=== PATIENT | female | born 1995 | race Caucasian/White ===

== ENCOUNTER 2023-11-06 03:38 | Inpatient (IN) ==
[2023-11-06] MEDS ORDERED: LIDOCAINE 1% LOCAL 20 ML VIAL INFIL PRN (06:49)
[2023-11-06] MEDS ORDERED: SODIUM CHLORIDE 0.9% 250 ML IV PRN (07:01)
--- NOTE | 2023-11-06 07:11 | History & Physical Report ---
Date of Service November 06, 2023 Assessment & Plan (1) Desires (vaginal after ) trial: Plan: 27 yo at 39 3/7 wga presents in labor VSS Fetus cat 1 Labor - will admit for labor. Still desires tolac, had signed consent form and scanned in 09/13/23. Again reviewed consent form including risk of uterine rupture and potential consequences following, pt aware. GBS neg epidural prn History of Present Illness Chief Complaint: ctx Primary Care Provider: NO PCP 27 yo at 39 3/7 wga presents w/ ctx. +FM; denies LOF, VB PNI: CSx1 for twins, PTL - confirmed LTCS Past [employer] Hx: G1 2020 - LTCS for TIUP denies hx stis 08/2022 neg cyto Allergies Allergy/AdvReac Type Severity Reaction Status Date / Time No Known Allergies Allergy Verified 11/03/23 08:31 Home Medications Medication Instructions Recorded Confirmed Type vit 168-iron 27 mg-folic 1 cap PO HS 03/28/23 11/06/23 History acid 800 mcg-omega3 235 mg capsule (One-A-Day -1) doxylamine succinate [Unisom 1 tab PO QPM 07/05/23 11/06/23 History (doxylamine)] pyridoxine (vitamin B6) 1 tab PO HS 07/05/23 11/06/23 History breast pump #1 ea 09/19/23 11/03/23 Rx loratadine 10 mg tablet 10 mg PO QAM 10/26/23 11/06/23 History Patient History Medical History De Quervain's tenosynovitis, bilateral occasional pain Surgical History (Updated 11/06/23 @ 07:10 by Luz Elena Forrester MD) H/O wisdom tooth extraction H/O section (04/2021) - csection in [place] at 30wks for delivery (twin ) Family History Grandfather (Paternal) Heart disease Diabetes Grandmother (Paternal) Heart disease Grandmother (Maternal) Heart disease Denies family history of Ovarian cancer Prostate cancer Myocardial infarction Breast cancer Colorectal cancer Social History Smoking Status: Never smoker Second Hand Exposure: No; Do You Dip or Chew Tobacco: No; Hx Alcohol Use: No Hx Substance Use: No Preferred Language: Guatemalan Communication Ability: Effective Visual Impairment: No Limitations Hearing Ability: Normal Equipment Installation Professional Required: No Beliefs That Will Affect Care: None marital status: marital status details: Neftaly (26) [phone] Current Living Situation: Spouse and Family Current Living Situation Comment: 2.5 twin daughters current occupational status: employed current occupation: [employer] Other Information That Helps Us Care for You: No Feels Safe at Home: Yes Safety Concerns: Feels Safe At This Time caffeine: Yes (occasional diet pepsi) Dental Care, Regularly: Yes Seatbelt Use: always Sunscreen Use: Yes Assistive Devices: Contacts and Glasses Physical Exam Genitourinary: OB Exam Abdomen: + estimated weight (6-7) OB Exam Monitor Tracing: + external FHT monitor used, + external uterine monitor used (q4) and + category I (135/mod/+accel/-decel) SVE 1.5/75/-2 to 3/75/-2 by nursing Results & Data Vital Signs (Past 12 Hours) Vital Signs Temp Pulse Resp BP 11/06/23 04:14 114 H 110/71 11/06/23 03:57 98.2 F 20 Laboratory Results OB Labs: Blood Type O Positive 04/04/23 Antibody Screen NEGATIVE 04/04/23 Hemoglobin 11.3 g/dl (12.0-16.0) L 08/16/23 Hematocrit 32.2 % (37.0-47.0) L 08/16/23 Mean Corpuscular Volume 86.3 fL (80.0-100.0) 04/04/23 Platelet Count 225 K/uL (130-400) 04/04/23 Rubella IgG Antibody Immune (Immune) 04/04/23 Rapid Plasma Reagin Nonreactive (Nonreactive) 04/04/23 Hepatitis B Surface Antigen. NON-REACTIVE (NON-REACTIVE) 04/04/23 Hepatitis C Antibody (EIA) NON-REACTIVE (NON-REACTIVE) 04/04/23 HIV (1&2) Ag and Ab Confirmation NON-REACTIVE (NON-REACTIVE) 04/04/23 Glucose 1 Hour 50 gm Load 137 mg/dl (70-130) H 08/16/23 OB Optional Labs: Chlamydia trachomatis RNA Not Detected (NotDetected) 04/04/23 Neisseria gonorrhoeae RNA Not Detected (NotDetected) 04/04/23 Labs Reviewed: passed [address] ak declined genetics/afp/carrier screening--[facility] Diagnostic Findings ant left lateral Coding Level of Care Code None Diagnoses Desires (vaginal after ) trial O34.219
[2023-11-06 08:04] LABS: Hematocrit (blood only) 34.4 % (37.0-47.0); Hemoglobin 11.6 g/dl (12.0-16.0); Mean Corpuscular Hemoglobin 29.4 pg (25.0-34.0); Mean Corpuscular Hgb Conc 33.7 g/dL (32.0-36.0); Mean Corpuscular Volume 87.3 fL (80.0-100.0); Mean Platelet Volume 9.4 fL (9.4-12.4); Platelet Count 193 K/uL (130-400); RDW Coefficient of Variation 13.3 % (11.5-14.5); RDW Standard Deviation 42.1 fL (36.4-46.3); Red Blood Count 3.94 M/uL (4.20-5.40); White Blood Count 11.32 K/ul (4.8-10.8)
--- NOTE | 2023-11-06 09:20 | Labor Progress Brief Note ---
Date of Service November 06, 2023 Subjective requesting exam Assessment & Plan (1) Desires (vaginal after ) trial: Plan: 27 yo at 39 3/7 wga presents in labor VSS Fetus cat 1 Labor - progress noted, doing well with labor. Discussed rom if desires, timing if indicated. Will see how progress is in a few hours and re-assess GBS neg epidural prn Admission and Anticipated Discharge Date Admission Date: November 06, 2023 Physical Exam Genitourinary: Manual OB Exam: + cervical dilation (4-5), + cervical effacement 90% and + station -2 OB Exam Monitor Tracing: + external FHT monitor used, + external uterine monitor used (q4) and + category I (135/mod/+accel/-decel) Results & Data Vital Signs (Past 12 Hours) Vital Signs Temp Pulse Resp BP 11/06/23 07:16 104 H 108/75 11/06/23 07:15 18 11/06/23 07:15 98.6 F 18 11/06/23 04:14 114 H 110/71 11/06/23 03:57 98.2 F 20 Coding Level of Care Code None Diagnoses Desires (vaginal after ) trial O34.219
[2023-11-06] MEDS: LACTATED RINGER'S 1,000 ML IV PRN (09:35)
[2023-11-06] MEDS ORDERED: LIDOCAINE 2% MPF LOCAL 5 ML VIAL EPI PRN (09:53)
[2023-11-06] MEDS ORDERED: diphenhydrAMINE 50 MG/ML VIAL IV PRN (09:53)
[2023-11-06] MEDS ORDERED: BUPIVACAINE 0.25% PF 30 ML VIAL EPI PRN (09:53)
[2023-11-06] MEDS ORDERED: ePHEDrine sulfate 50 MG/ML AMP IV PRN (09:53)
[2023-11-06] MEDS ORDERED: ROPIVACAINE 0.5% PF 5 MG/ML 20 ML VIAL EPI PRN (09:53)
[2023-11-06] MEDS ORDERED: NALBUPHINE HCL 5 MG in SYRINGE 0 ML IV PRN (09:53)
[2023-11-06] MEDS ORDERED: SODIUM CHLORIDE 0.9% PF INJ 10 ML VIAL EPI PRN (09:53)
[2023-11-06] MEDS ORDERED: NALOXONE HCL 1 MG in SODIUM CHLORIDE 0.9% 1,000 ML IV PRN (09:53)
[2023-11-06] MEDS ORDERED: fentaNYL citrate PF 100 MCG/2 ML VIAL EPI PRN (09:53)
[2023-11-06] MEDS ORDERED: fentANYL 2 MCG/ML BUPIVacaine 0.125%-NSS 100ML BAG EPI PRN (09:53)
[2023-11-06] MEDS ORDERED: NALOXONE HCL 0.4 MG/1 ML VIAL/CARP IV PRN (09:53)
--- NOTE | 2023-11-06 09:54 | Anesthesiology Consultation ---
Date of Service November 06, 2023 Assessment & Plan Chart Review Chart Review: Acceptable Risk for Labor Epidural Consults Requested none History Height/Weight Height: 5 ft 8 in Weight: 70.398 kg Allergies Allergy/AdvReac Type Severity Reaction Status Date / Time No Known Allergies Allergy Verified 11/03/23 08:31 Medications Home Medications Medication Instructions Recorded Confirmed Last Taken vit 168-iron 27 mg-folic 1 cap PO HS 03/28/23 11/06/23 Unknown acid 800 mcg-omega3 235 mg capsule (One-A-Day -1) doxylamine succinate [Unisom 1 tab PO QPM 07/05/23 11/06/23 Unknown (doxylamine)] pyridoxine (vitamin B6) 1 tab PO HS 07/05/23 11/06/23 Unknown breast pump #1 ea 09/19/23 11/03/23 Unknown loratadine 10 mg tablet 10 mg PO QAM 10/26/23 11/06/23 Unknown Active Medications Generic Name Dose Route Start Last Admin Trade Name Freq PRN Reason Stop Dose Admin Lactated Ringer's 1,000 mls @ 125 mls/hr 11/06/23 06:49 11/06/23 09:35 Lr IV 11/08/23 06:48 999 mls/hr .Q8H PRN Administration L&D Protocol Protocol Past Medical History Medical History De Quervain's tenosynovitis, bilateral occasional pain Past Family History Family History Grandfather (Paternal) Heart disease Diabetes Grandmother (Paternal) Heart disease Grandmother (Maternal) Heart disease Denies family history of Ovarian cancer Prostate cancer Myocardial infarction Breast cancer Colorectal cancer Past Surgical History Surgical History (Updated 11/06/23 @ 07:10 by Luz Elena Forrester MD) H/O wisdom tooth extraction H/O section (04/2021) - csection in [place] at 30wks for delivery (twin ) Social History Smoking Status: Never smoker Do You Dip or Chew Tobacco: No Hx Alcohol Use: No Hx Substance Use: No substance use type: does not use Physical Exam Vital Signs Last Vital Signs Temp 37.0 C 11/06/23 07:15 Pulse 104 H 11/06/23 07:16 Resp 18 11/06/23 07:15 BP 108/75 11/06/23 07:16 Testing Laboratory Results 11/06/23 07:44 Blood Type O Positive 11/06/23 07:44 Antibody Screen NEGATIVE 11/06/23 07:44
[2023-11-06] MEDS: LIDOCAINE 2%/EPINEPHRINE 1:200,000 20 ML PF ONE (10:20)
[2023-11-06] MEDS: fentANYL 2 MCG/ML BUPIVacaine 0.125%-NSS 100ML BAG ONE (10:21)
[2023-11-06] MEDS: fentaNYL citrate PF 100 MCG/2 ML VIAL ONE (11:06)
[2023-11-06] MEDS: SODIUM CHLORIDE 0.9% PF INJ 10 ML VIAL ONE (11:07)
[2023-11-06] MEDS: BUPIVACAINE 0.25% PF 30 ML VIAL ONE (11:07)
[2023-11-06] MEDS: BUPIVACAINE 0.25% PF 30 ML VIAL EPI STA (11:08)
[2023-11-06] MEDS: fentaNYL citrate PF 100 MCG/2 ML VIAL EPI STA (11:08)
[2023-11-06] MEDS: SODIUM CHLORIDE 0.9% PF INJ 10 ML VIAL EPI STA (11:08)
[2023-11-06] MEDS: LIDOCAINE 2%/EPINEPHRINE 1:200,000 20 ML PF EPI STA (11:08)
--- NOTE | 2023-11-06 11:36 | Labor Progress Brief Note ---
Date of Service November 06, 2023 Subjective comfortable w/ epidural Assessment & Plan (1) Desires (vaginal after ) trial: Plan: 27 yo at 39 3/7 wga presents in labor VSS Fetus cat 1 Labor - s/p epidural feeling better. Discussed arom, risks and benefits and pt agreeable. arom, performed, tolerated well GBS neg epidural in place Admission and Anticipated Discharge Date Admission Date: November 06, 2023 Physical Exam Genitourinary: Manual OB Exam: + cervical dilation (4-5), + cervical effacement 90% and + station -2 OB Exam Monitor Tracing: + external FHT monitor used, + external uterine monitor used (q4) and + category I (135/mod/+accel/-decel) Results & Data Vital Signs (Past 12 Hours) Vital Signs Temp Pulse Resp BP Pulse Ox 11/06/23 11:28 106 H 100 11/06/23 11:23 98 H 100 11/06/23 11:18 94 H 100 11/06/23 11:16 100 H 113/63 11/06/23 11:13 97 H 100 11/06/23 11:08 98 H 100 11/06/23 11:03 103 H 100 11/06/23 11:00 97 H 95/55 L 11/06/23 10:58 102 H 100 11/06/23 10:53 103 H 100 11/06/23 10:48 101 H 100 11/06/23 10:46 98.6 F 92 H 18 98/59 L 11/06/23 10:43 98 H 100 11/06/23 10:38 102 H 100 11/06/23 10:33 105 H 100 11/06/23 10:30 95 H 98/55 L 11/06/23 10:28 104 H 100 11/06/23 10:26 104 H 103/55 L 11/06/23 10:23 100 H 100 11/06/23 10:21 100 H 100/55 L 11/06/23 10:18 106 H 100 11/06/23 10:15 100 H 125/82 11/06/23 10:13 99 H 100 11/06/23 10:08 116 H 100 11/06/23 07:16 104 H 108/75 11/06/23 07:15 18 11/06/23 07:15 98.6 F 18 11/06/23 04:14 114 H 110/71 11/06/23 03:57 98.2 F 20 Coding Level of Care Code None Diagnoses Desires (vaginal after ) trial O34.219
[2023-11-06] MEDS ORDERED: NURSING L&D Epidural Breakthrough Pain Update ONE (11:51)
[2023-11-06] MEDS: OXYTOCIN 30 UNITS/NSS 30 UNITS/500 ML BAG IV PRN (15:18)
[2023-11-06] MEDS: ePHEDrine sulfate 50 MG/ML AMP ONE (15:33)
--- NOTE | 2023-11-06 15:49 | Delivery Summary ---
Vaginal Delivery Summary Date of Service November 06, 2023 Vaginal Delivery Summary and 2nd Degree LAC PREOPERATIVE DIAGNOSIS: 1. Single intrauterine at 39 3/7 2. Labor 3. History of section, desires POSTOPERATIVE DIAGNOSIS: 1. Single intrauterine at 39 3/7 2. Labor 3. History of section, desires 4. Delivered PROCEDURE: 1. Vaginal after SURGEON: Luz Elena Forrester MD ANESTHESIA: Epidural. QUANTITATIVE BLOOD LOSS: 659 mL - large portion due to labial laceration FLUIDS: Continuous LR. URINE OUTPUT: None. COMPLICATIONS: None. CONDITION: Stable. INDICATIONS: 27 yo presented with contractions increasing in frequency and intensity. Was 1.5cm on arrival and progressed to 3cm. She continued to progress spontaneously and received an epidural for pain control. She underwent arom and 4-5cm and progressed to complete and desired to push. FINDINGS: A viable female , weight pending with Apgars of 8 and 9 at 1 and 5 minutes respectively. SPECIMEN: Cord blood OPERATIVE REPORT: The patient progressed to 10 cm, 100% effaced and +2 station, pushed over intact perineum with anesthesia to deliver a viable female , weight and Apgars as above. Head of delivered in DASHAWN position. No nuchal cord was present. Body and shoulders were delivered without difficulty. was delivered to maternal abdomen and nursing staff. Delayed cord clamping was performed for 60 seconds. Cord was clamped and cut. Cord blood was obtained. Placenta delivered spontaneously intact with 3-vessel cord. IV oxytocin and fundal massage were given for excellent hemostasis. Vagina, cervix, perineum, and placenta were inspected. A second degree and right labial laceration were repaired using 3-0 vicryl, there was excellent hemostasis. Sponge and needle counts correct x2. No sponges were left behind. Mother and stable in immediate period. [facility] Vaginal Delivery Charge Vaginal Delivery Codes: 93425 global code for the antepartum, delivery, and post- Delivery Type Details: and 2nd Degree LAC
[2023-11-06] MEDS ORDERED: HYDROCORTISONE ACETATE 25 MG SUPP PR PRN (16:10)
[2023-11-06] MEDS ORDERED: bisacodyL 10 MG SUPP PR PRN (16:10)
[2023-11-06] MEDS ORDERED: OXYTOCIN 30 UNITS/NSS 30 UNITS/500 ML BAG IV PRN (16:10)
[2023-11-06] MEDS: DIPHTHER/TETAN/PERTUS Vaccine (Tdap, Adol/Adult) 0.5mL IM ONE (16:24)
[2023-11-06] MEDS: ONDANSETRON INJ 2 MG/ML 2 ML VIAL IV PRN (16:30)
--- NOTE | 2023-11-06 16:46 | Anesthesia Procedure Note ---
Date of Service November 06, 2023 Anesthesia Post Epidural Note Vital Signs Vital Signs: Temp Pulse Resp BP Pulse Ox 36.5 C 101 H 18 101/59 L 98 11/06/23 13:15 11/06/23 16:43 11/06/23 13:15 11/06/23 16:39 11/06/23 16:43 Pain Intensity Lower Perineal: Pain Intensity: 6 Notes Mental Status: alert / awake / arousable and participated in evaluation Nausea / Vomiting: adequately controlled Pain: adequately controlled Airway Patency, RR, SpO2: stable & adequate BP & HR: stable & adequate Hydration State: stable & adequate Neuraxial Anesthesia: was administered and sensory block is resolving Anesthetic Complications: no major complications apparent and Pt Satisfied with anesthetic care Epidural: Removed without complications and With tip intact
[2023-11-06] MEDS: IBUPROFEN 600 MG TAB PO PRN (18:11)
[2023-11-06] MEDS: BENZOCAINE 20% SPRY 85 APPLN/85 GM CAN EXT PRN (19:32)
[2023-11-06] MEDS: ACETAMINOPHEN 325 MG TAB PO PRN (19:54)
[2023-11-06] MEDS: DOCUSATE SODIUM 100 MG CAP PO SCH (20:55)
--- NOTE | 2023-11-07 06:21 | Obstetrical Progress Note ---
Date of Service <Estelitamonisha Tubbs DO - Last Filed: 11/07/23 06:29> November 07, 2023 Assessment & Plan <Estelitamonisha Tubbs DO - Last Filed: 11/07/23 06:29> (1) care following vaginal delivery: Feels well today. Eating well, voiding well, ambulating well. Pain well controlled with prn analgesics. Routine care; OOB, ambulation, diet progression as tolerated. Anticipate discharge 24-48 hours after , today or tomorrow. After discharge will have 6 week follow-up with Dr. Forrester. <Luz Elena Forrester MD - Last Filed: 11/07/23 06:44> (1) care following vaginal delivery: Subjective <Estelita Torsten DO Ar[place] - Last Filed: 11/07/23 06:29> Pt is a 27 y/o female who is PPD#1 following at 39 weeks. Today, pt states that she overall feels good. She states she does have some soreness of her bottom but has been voiding okay overnight. Tolerating intake well. States that when she got up in the middle of the night once she did feel a little lightheaded but has not had any episodes since and feels totally fine now. Breast feeding is going really well. Thinking she wants to go home later today if possible since she has little ones at home. No further questions or complaints at this time. Constitutional: no fever, no chills or no sweats Respiratory: no dyspnea Cardiovascular: no chest pain or no palpitations Breast: no breast pain Genitourinary (female): no dysuria Neurologic: no headache(s) no changes in vision, no headaches Physical Exam <Estelita Tubbs DO - Last Filed: 11/07/23 06:29> General: Alert, oriented. No acute distress. Cardiac: Regular rate and rhythm, no murmurs, rubs, or gallops. Respiratory: Clear to auscultation bilaterally, no wheezes/rales/rhonchi. No increased work of breathing. Symmetrical chest rise. No respiratory distress. Abdomen: Soft, nontender, nondistended. Bowel sounds present. Uterus: Uterine fundus firm, palpable below below the umbilicus. Lower extremities: No lower extremity edema or swelling. No deep calf pain. Results & Data <Estelita Tubbs DO - Last Filed: 11/07/23 06:29> Vital Signs (Past 12 Hours) Vital Signs Temp Pulse Pulse Resp BP BP Pulse Ox 11/07/23 03:00 36.6 C 94 H 18 111/66 98 11/06/23 23:15 36.5 C 112 H 18 99/65 L 98 11/06/23 19:50 36.9 C 98 H 18 98/60 L 98 11/06/23 19:10 107 H 100 11/06/23 19:09 37.2 C 18 11/06/23 19:07 98 H 121/62 11/06/23 19:05 127 H 100 11/06/23 19:00 110 H 100 11/06/23 18:55 113 H 100 11/06/23 18:50 119 H 100 11/06/23 18:45 119 H 100 11/06/23 18:40 126 H 100 11/06/23 18:35 113 H 100 11/06/23 18:30 112 H 100 11/06/23 18:25 107 H 100 11/06/23 18:20 121 H 100 O2 Del Method 11/07/23 03:00 Room Air 11/06/23 23:15 Room Air 11/06/23 19:50 Room Air 11/06/23 19:10 11/06/23 19:09 11/06/23 19:07 11/06/23 19:05 11/06/23 19:00 11/06/23 18:55 11/06/23 18:50 11/06/23 18:45 11/06/23 18:40 11/06/23 18:35 11/06/23 18:30 11/06/23 18:25 11/06/23 18:20 Supervising Physician <Luz Elena Forrester MD - Last Filed: 11/07/23 06:44> Co-Signing Physician Notes Resident Physician Supervision Note: I interviewed and examined the patient. Discussed with Dr. Tubbs and agree with findings and plan as documented in the note. Any exceptions or clarifications are listed here: PP1 s/p , doing well. VSS, exam benign and wnl. May want to dc home this evening Documented By: Luz Elena Forrester MD Resident Activity Tracking <Estelita Tubbs, DO - Last Filed: 11/07/23 06:29> Resident Involvement: Resident Care Provided Care Provided: OB Delivery
[2023-11-07] MEDS: FERROUS SULFATE 325 MG TAB PO SCH (07:13)
[2023-11-07] MEDS: PRENATAL VITAMIN 1 TAB PO SCH (07:13)
[2023-11-07] MEDS ORDERED: bisacodyL 5 MG TABEC PO SCH (20:00)
== END 2023-11-07 15:45 | disposition home or self-care (01) | DRG 807 ==
LOC: OPB 03:38 → 4S1 03:41 → 4E2 20:11